=== PATIENT | female | born 1955 | race Caucasian/White ===

== ENCOUNTER → 2020-01-03 | Day surgery (SDC) | payer OTHER ==
--- NOTE | 2020-01-03 23:55 | OP ---
DATE OF OPERATION: 01/03/2020 PREOPERATIVE DIAGNOSIS: Abnormal left mammography. POSTOPERATIVE DIAGNOSIS: Abnormal left mammography. PROCEDURE: Left stereotactic needle biopsy with clips. SURGEON: Briana Gregorio MD. ANESTHESIA: Local. COMPLICATIONS: None. This was a sterile procedure. INDICATION FOR PROCEDURE: Patient presented for screening mammography and noted a cluster microcalcification in sort of a wide area in the inferior left breast which has slowly been increasing in numbers since 2010. My recommendation was a needle biopsy. The procedure was discussed and all her questions answered. PROCEDURE IN DETAIL: Patient brought to [facility] in [place], laid prone on the OR table. Using the lateral approach, calcifications in the inferior left breast were identified. A sterile prep was obtained. A target was chosen. There was a positive stroke margin. Using Betadine and 1% lidocaine, a 9-gauge Suros device was used to take several cores from this area. Cores from calcifications protocol. A clip was deployed. Hemostasis assured with direct pressure. Steri-Strips were used to close the incision. She tolerated the procedure well and left the breast imaging center in good condition. BRIANA GREGORIO M.D. [id number]
--- NOTE | 2020-01-04 15:38 | PATH ---
Surgical Pathology Report Patient Name: KEM IVERSON [facility]. Rec. #: [id number] /Age/Gender: 1955 (Age: 64) / F Account: [id number] Location: [facility] Taken: 01/03/2020 Received: 01/03/2020 Reported: 01/04/2020 Physicians: Briana Lu M.D. Specimen(s) Received A: LEFT BREAST SPECIMEN WITH CALCIFICATIONS B: LEFT BREAST SPECIMEN WITHOUT CALCIFICATIONS Clinical History Nonpalpable lesion Mammographic findings: Microcalcification, suspicious, highly suspicious/malignant Final Diagnosis A. BREAST, LEFT, WITH CALCIFICATIONS, STEREOTACTIC BIOPSY: BENIGN BREAST TISSUE SHOWING DENSE SCLEROSING FIBROSIS WITH ASSOCIATED COARSE STROMAL CALCIFICATIONS. B. BREAST, LEFT, WITHOUT CALCIFICATIONS, STEREOTACTIC BIOPSY: BENIGN BREAST TISSUE SHOWING STROMAL FIBROSIS. Electronically Signed Rosamaria Falk M.D. Gross Description A. Received in formalin labeled "left breast specimen with calcifications," is a 1.7 x 1.0 x 0.2 cm aggregate of multiple loyola-yellow, irregular to cylindrical portions of fibroadipose tissue. The formalin is filtered and the specimen is entirely submitted in one cassette. B. Received in formalin labeled "left breast specimen without calcifications," is a 2.1 x 1.5 x 0.3 cm aggregate of multiple loyola-yellow, irregular to cylindrical portions of fibroadipose tissue. The formalin is filtered and the specimen is entirely submitted in one cassette. Time to formalin fixation: 6 minutes Total formalin fixation time: Approximately 6 hours. /01/03/2020 saudi/01/03/2020
== END | disposition home or self-care (01) ==
LOC: FMAMMOTONE 10:29
PROVIDERS: ATTEND Surgery
PROC: 0HBU3ZX Excision of Left Breast, Percutaneous Approach, Diagnostic (ICD-10-PCS; principal; 2020-01-03)
DX: N60.32 Fibrosclerosis of left breast (principal); N64.89 Other specified disorders of breast; R92.8 Other abnormal and inconclusive findings on diagnostic imaging of breast
CPT/HCPCS: 19081; 76098-TC-FY; 87899; 88305-TC; A4648

== ENCOUNTER → 2020-09-18 | Day surgery (SDC) | payer OTHER | END | disposition home or self-care (01) | LOC: FMAMMOTONE 11:31 | PROVIDERS: ATTEND Surgery | PROC: 0H9U3ZX Drainage of Left Breast, Percutaneous Approach, Diagnostic (ICD-10-PCS; principal; 2020-09-18) | DX: D24.2 Benign neoplasm of left breast (principal) | CPT/HCPCS: 19081; 76098-TC-FY; 87899; A4648 ==